=== PATIENT | male | born 1990 | race Caucasian/White ===

== ENCOUNTER 2020-11-10 12:40 | Emergency (ER) | payer OTHER ==
[~2020-11-10] VITALS: Ht 182.9 cm; Wt 86.2 kg
[2020-11-10 13:11] VITALS: BP 109/81
[2020-11-10] MEDS ORDERED: ACETAMINOPHEN 325 MG TABLET PO ONE (13:30)
[2020-11-10] MEDS ORDERED: ACETAMINOPHEN 325 MG TABLET ONE (13:43)
--- NOTE | 2020-11-10 14:20 | NUR ---
Patient discharged to home in stable condition. Written and verbal after care instructions given. Patient verbalizes understanding of instruction.
== END 2020-11-10 14:20 | disposition home or self-care (01) ==
LOC: ER 12:44
DX: S82.62XA Displaced fracture of lateral malleolus of left fibula, initial encounter for closed fracture (principal); Z60.2 Problems related to living alone; X50.1XXA Overexertion from prolonged static or awkward postures, initial encounter; Y93.02 Activity, running; Y92.89 Other specified places as the place of occurrence of the external cause; Y99.8 Other external cause status
CPT/HCPCS: 73610-TC